=== PATIENT | male | born 1955 | race Caucasian/White ===

== ENCOUNTER 2017-02-12 16:37 | Emergency (ER) | payer OTHER ==
[~2017-02-12] VITALS: Ht 172.7 cm; Wt 122.5 kg
[~2017-02-12 16:37] MED LIST: AMITRIPTYLINE H25 MG PO; CIPRO500 MG PO; DISALCID500 MG PO; FLOMAX0.4 MG PO; FLONASE ALLERG9.9 ML NS; LACTULOSE10 GM/15 M PO; LACTULOSE20 GM/30 M PO; LANTUS100 UNITS/ SUB-Q; LASIX40 MG PO; MELATONIN3 MG PO; MELOXICAM15 MG PO; NADOLOL20 MG PO; NEXIUM20 MG PO; OMEPRAZOLE20 MG PO; SPIRONOLACTONE100 MG NG; SPIRONOLACTONE50 MG PO; TRIAMCINOLONE A15 G1 TOP; ZOFRAN4 MG PO
[2017-02-12] MEDS ORDERED: ULTRAM50 MG PO (18:37)
== END 2017-02-12 19:20 | disposition home or self-care (01) ==
LOC: ED 16:37
DX: S80.02XA Contusion of left knee, initial encounter (principal); D64.9 Anemia, unspecified; D69.6 Thrombocytopenia, unspecified; E11.9 Type 2 diabetes mellitus without complications; Z87.891 Personal history of nicotine dependence; Z87.442 Personal history of urinary calculi; Z79.4 Long term (current) use of insulin; Z79.899 Other long term (current) drug therapy; Z90.49 Acquired absence of other specified parts of digestive tract; W21.07XA Struck by softball, initial encounter
CPT/HCPCS: 73560; 80053; 85025; 99283

== ENCOUNTER 2017-05-29 18:59 | Emergency (ER) | payer OTHER ==
[~2017-05-29] VITALS: Ht 172.7 cm; Wt 96.6 kg
[~2017-05-29 18:59] MED LIST changes: +ULTRAM50 MG PO
[2017-05-29] MEDS ORDERED: HUMALOG100 UNITS/ IV (20:29)
[2017-05-29] MEDS ORDERED: LANTUS100 UNITS/ SUB-Q (20:30)
[2017-05-29] MEDS ORDERED: CLOBETASOL EMOL15 GM TOP (20:31)
[2017-05-29] MEDS ORDERED: MELATIN3 MG PO (20:35)
[2017-05-29] MEDS ORDERED: LACTULOSE10 GM/152 PO (20:35)
[2017-05-29] MEDS ORDERED: NADOLOL40 MG PO (20:36)
[2017-05-29] MEDS ORDERED: TRIAMCINOLONE A15 G1 TOP (20:38)
[2017-05-29] MEDS ORDERED: FLOMAX0.4 MG PO (20:38)
[2017-05-29] MEDS ORDERED: LASIX20 MG PO (20:40)
== END 2017-05-30 00:55 | disposition home or self-care (01) ==
LOC: ED 18:59
PROC: 0HQ0XZZ Repair Scalp Skin, External Approach (ICD-10-PCS; principal; 2017-05-29)
DX: J01.90 Acute sinusitis, unspecified (principal); S01.01XA Laceration without foreign body of scalp, initial encounter; D69.6 Thrombocytopenia, unspecified; E11.9 Type 2 diabetes mellitus without complications; Z86.19 Personal history of other infectious and parasitic diseases; Z87.442 Personal history of urinary calculi; Z87.891 Personal history of nicotine dependence; Z87.820 Personal history of traumatic brain injury; Z90.49 Acquired absence of other specified parts of digestive tract; Z79.4 Long term (current) use of insulin; Z79.899 Other long term (current) drug therapy; W06.XXXA Fall from bed, initial encounter
CPT/HCPCS: 12002; 70450; 80053; 85025; 90471; 90715; 99284

== ENCOUNTER 2017-05-30 10:41 | Emergency (ER) | payer OTHER ==
[~2017-05-30] VITALS: Ht 172.7 cm; Wt 96.6 kg
[~2017-05-30 10:41] MED LIST changes: +CLOBETASOL EMOL15 GM TOP; +HUMALOG100 UNITS/ IV; +LACTULOSE10 GM/152 PO; +LASIX20 MG PO; +MELATIN3 MG PO; +NADOLOL40 MG PO
== END 2017-05-30 12:25 | disposition home or self-care (01) ==
LOC: ED 10:41
PROC: 0HQ0XZZ Repair Scalp Skin, External Approach (ICD-10-PCS; principal; 2017-05-30)
DX: S01.01XA Laceration without foreign body of scalp, initial encounter (principal); E11.9 Type 2 diabetes mellitus without complications; Z87.442 Personal history of urinary calculi; Z90.49 Acquired absence of other specified parts of digestive tract; Z98.890 Other specified postprocedural states; Z79.4 Long term (current) use of insulin; Z79.899 Other long term (current) drug therapy; W06.XXXA Fall from bed, initial encounter
CPT/HCPCS: 12002; 99282

== ENCOUNTER 2018-03-26 20:30 | Inpatient (IN) | payer MEDICAID, OTHER ==
[~2018-03-26] VITALS: Ht 172.7 cm; Wt 81.6 kg
--- OUTSIDE RECORDS SUMMARY | ~2018-03-26 | XMS | Clinical Summary ---
Demographics + + + | Address | [place] [facility] | | | [address] | | | [place] [address] | + + + | Home Phone | | + + + | Preferred Language | Unknown | + + + | Marital Status | Unknown | + + + | Anglican Affiliation | Unknown | + + + | Race | Unknown | + + + | Ethnic Group | Unknown | + + + Author + + + | Author | [facility] | | | and [place] | + + + | Organization | [facility] | | | and [place] | + + + | Address | Unknown | + + + | Phone | Unavailable | + + + Support + + + + + | Name | Relationship | Address | Phone | + + + + + | [place] | E[place] | [address] | | [address] | | [place], | | | | | [place] [address] | | + + + + + Care Team Providers + +------+ + | Care Tool Crib Supervisor Name | Role | Phone | + +------+ + | No, Physician | PP | Unavailable | + +------+ + Allergies No Known Allergies Current Medications + + +-------+---------+------+------+-------+ | Prescription | Sig. | Disp. | Refills | Star | End | Statu | | | | | | t | Date | s | | | | | | Date | | | + + +-------+---------+------+------+-------+ | furosemide (LASIX) | Take 20 mg by mouth. | | | | | Activ | | 20 mg tablet | 2 tablets in the | | | | | e | | | am, 1 tablets at | | | | | | | | noon prn swelling | | | | | | + + +-------+---------+------+------+-------+ | lactulose 10 g/15 | Take 20 g by mouth. | | | | | Activ | | mL solution | | | | | | e | + + +-------+---------+------+------+-------+ | insulin glargine | Inject 20 Units | | | | | Activ | | (LANTUS) 100 | under the skin. | | | | | e | | units/mL injection | | | | | | | | (vial) | | | | | | | + + +-------+---------+------+------+-------+ | melatonin 3 mg | Take 3 mg by mouth | | | | | Activ | | TABS | nightly. | | | | | e | + + +-------+---------+------+------+-------+ | nadolol (CORGARD) | Take 40 mg by mouth | | | | | Activ | | 40 mg tablet | Daily. | | | | | e | + + +-------+---------+------+------+-------+ | omeprazole | Take 20 mg by mouth | | | | | Activ | | (PRILOSEC) 20 mg | every morning | | | | | e | | capsule | (before breakfast). | | | | | | + + +-------+---------+------+------+-------+ | spironolactone | Take 150 mg by mouth | | | | | Activ | | (ALDACTONE) 50 mg | Daily. | | | | | e | | tablet | | | | | | | + + +-------+---------+------+------+-------+ | tamsulosin | Take 0.4 mg by mouth | | | | | Activ | | (FLOMAX) 0.4 mg CAPS | daily (after | | | | | e | | | breakfast). | | | | | | + + +-------+---------+------+------+-------+ Active Problems No known active problems Social History + + + +--------+ + | Tobacco Use | Types | Packs/Day | Years | Date | | | | | Used | | + + + +--------+ + | Former Smoker | Cigarettes | 0.3 | | Quit: 07/12/2010 | + + + +--------+ + + + + | Sex Assigned at | Date Recorded | | | | + + + | Not on file | | + + + Last Filed Vital Signs + + + + | Vital Sign | Reading | Time Taken | + + + + | Blood Pressure | 115/84 | 10/02/20161529 PDT | + + + + | Pulse | 58 | 10/02/20161529 PDT | + + + + | Temperature | 37.2 C (99 F) | 10/02/20169 PDT | + + + + | Respiratory Rate | 18 | 10/02/20161529 PDT | + + + + | Oxygen Saturation | 98% | 10/02/20161529 PDT | + + + + | Inhaled Oxygen | - | - | | Concentration | | | + + + + | Weight | 97.5 kg (215 lb) | 10/02/2016855 PDT | + + + + | Height | 170.2 cm (5' 7") | 10/02/2016855 PDT | + + + + | Body Mass Index | 33.67 | 10/02/2016855 PDT | + + + + Plan of [...] | | + + + + + Implants + +-------+--------+ +--------+--------+--------+ | Implanted | Type | Area | Manufacture | Device | Expira | Model | | | | | r | | tion | / | | | | | | Identi | Date | Serial | | | | | | fier | | / Lot | + +-------+--------+ +--------+--------+--------+ | Stent Uro Unvrs Sft 6fr 28cm | Stent | Left: | COOK | | 03/20/ | [id number] | | - [id number]: Qty: 1 | | Ureter | [employer] | | 2019 | / | | on 10/02/2016 by Baltazar Riggins | | | - MIK | | | /[id number] | | MD Reza | | | | | | 51 | + +-------+--------+ +--------+--------+--------+ Results Not on filefrom Last 3 Months Insurance + +--------+ +--------+-------+---------+ | Payer | Benefi | Subscriber | Type | Phone | Address | | | t Plan | ID | | | | | | / | | | | | | | Group | | | | | + +--------+ +--------+-------+---------+ | DEPARTMENT OF | DEPART | [id number] | Indemn | | | | CORRECTIONS | MENT | | ity | | | | | OF | | | | | | | CORREC | | | | | | | TIONS | | | | | | | OTHER | | | | | + +--------+ +--------+-------+---------+ + +--------+ +--------+ + + | Guarantor Name | Accoun | Relation to | Date | Phone | Billing Address | | | t Type | Patient | of | | | | | | | | | | + +--------+ +--------+ + + | ABBIE RAMIRES [place] | Corpor | Other | [birth year] | Work: | [address] | | [facility] | ate | | 1899 | [phone] | [place] [address] | | | | | | [phone] Home: | | | | | | | | | | | | | | [phone] | | | | | | | [phone] | | + +--------+ +--------+ + + | ESTEVAN BURGER | Person | Self | [birth year] | Home: | [place] | | | al/Fam | | 1956 | [phone] | [address] | | | [address] | | | [phone] | [place] | | | | | | | [place] [address] | + +--------+ +--------+ + +
--- OUTSIDE RECORDS SUMMARY | ~2018-03-26 | XMS | Clinical Summary ---
Demographics + + + | Address | [address] | | | [place] [address] | + + + | Home Phone | | + + + | Preferred Language | Unknown | + + + | Marital Status | | + + + | Orthodoxy Affiliation | 1041 | + + + | Race | Unknown | + + + | Ethnic Group | Unknown | + + + Author + + + | Author | [facility] | + + + | Organization | [facility] | + + + | Address | Unknown | + + + | Phone | Unavailable | + + + Support + + +---------+ + | Name | Relationship | Address | Phone | + + +---------+ + | Jovana Mancia | ECON | Unknown | | | n [place] | | | | + + +---------+ + Care Team Providers + +------+ + | Care Nailer Operator Name | Role | Phone | + [...] | 17 | | | | | [id number] | | | | | | | [...] +------+-------+---------+ | [facility] | FC-COR | [id number] | | | | | | RECTIO [...] | 1956 | +- | [place] [address] | | | [address]ela | | | [address] | | + +--------+ +--------+ + + | LUCIANA,ABBIE | Correc | Other | [birth year] | Home: | [address] | | [place] | tional | | 1898 | +- | [place] | | | | | | [address] | [phone] | | | Facili | | | | | | | ty | | | | | + +--------+ +--------+ + +
--- OUTSIDE RECORDS SUMMARY | ~2018-03-26 | XMS | Clinical Summary ---
Demographics + + + | Address | [address] | | | [place] [address] | + + + | Home Phone | | + + + | Preferred Language | Unknown | + + + | Marital Status | | + + + | Protestant Affiliation | 1041 | + + + | Race | Unknown | + + + | Ethnic Group | Unknown | + + + Author + + + | Author | [facility] | + + + | Organization | [facility] | + + + | Address | Unknown | + + + | Phone | Unavailable | + + + Support + + +---------+ + | Name | Relationship | Address | Phone | + + +---------+ + | Jovana Mancia | ECON | Unknown | | | n [place] | | | | + + +---------+ + Care Team Providers + +------+ + | Care Family Court Counsellor Name | Role | Phone | + [...] | 17 | | | | | [id number] | | | | | | | [...] +------+-------+---------+ | [employer] [facility] | FC-COR | [id number] | | | | | | RECTIO [...] | 1956 | +- | [place] [address] | | | [address]ela | | | [address] | | + +--------+ +--------+ + + | LUCIANA,ABBIE | Correc | Other | [birth year] | Home: | [address] | | [place] | tional | | 1898 | +- | [place] | | | | | | [address] | [phone] | | | Facili | | | | | | | ty | | | | | + +--------+ +--------+ + +
--- OUTSIDE RECORDS SUMMARY | ~2018-03-26 | XMS | Clinical Summary ---
Demographics + + + | Address | [place] [facility] | | | [address] | | | [place] [address] | + + + | Home Phone | | + + + | Preferred Language | Unknown | + + + | Marital Status | Unknown | + + + | Rastafarian Affiliation | Unknown | + + + | Race | Unknown | + + + | Ethnic Group | Unknown | + + + Author + + + | Author | [facility] | | | and [place] | + + + | Organization | [facility] | | | and [...] [place], | | | | | [place] [address] | | + + + + + Care Team Providers + +------+ + | Care Outside Repairer Special Name | Role | Phone | + [...] | MIK HOUSER | | 03/20/ | [id number] | | - [id number]: Qty: 1 | | Ureter | INCORPORATE | | 2019 | / | | on 10/02/2016 by Baltazar Riggins | | | D | | | /[id number] | | MD Reza | | | [...] +--------+-------+---------+ | DEPARTMENT OF | DEPART | [id number] | Indemn | | | | CORRECTIONS [...] +--------+ +--------+ + + | ABBIE RAMIRES [place] | Corpor | Other | [birth year] | Work: | [address] | | [facility] | ate | | 1899 | [phone] | [place] [address] | | | | | | [address] Home: | | | | | | | | | | | | | | [phone] | | | | | | | [address] | | + +--------+ +--------+ + + | ESTEVAN BURGER | Person | Self | [birth year] | Home: | [place] | | | al/Fam | | 1956 | [phone] | [address] | | | [address] | | | [phone] | [place] | | | | | | | [place] [address] | + +--------+ +--------+ + +
--- OUTSIDE RECORDS SUMMARY | ~2018-03-26 | XMS | Clinical Summary ---
Demographics + + + | Address | [address] | | | [place] [address] | + + + | Home Phone | | + + + | Preferred Language | Unknown | + + + | Marital Status | | + + + | Anglican Affiliation | 1041 | + + + | Race | Unknown | + + + | Ethnic Group | Unknown | + + + Author + + + | Author | [facility] | + + + | Organization | [facility] | + + + | Address | Unknown | + + + | Phone | Unavailable | + + + Support + + +---------+ + | Name | Relationship | Address | Phone | + + +---------+ + | Jovana Mancia | ECON | Unknown | | | n [place] | | | | + + +---------+ + Care Team Providers + +------+ + | Care Vacuum Technician Name | Role | Phone | + [...] | 17 | | | | | [id number] | | | | | | | [...] +------+-------+---------+ | [facility] | FC-COR | [id number] | | | | | | RECTIO [...] | 1956 | +- | [place] [address] | | | [address]ela | | | [address] | | + +--------+ +--------+ + + | LUCIANA,ABBIE | Correc | Other | [birth year] | Home: | [address] | | [place] | tional | | 1898 | +- | [place] | | | | | | [address] | [phone] | | | Facili | | | | | | | ty | | | | | + +--------+ +--------+ + +
--- OUTSIDE RECORDS SUMMARY | ~2018-03-26 | XMS | Clinical Summary ---
Demographics + + + | Address | [place] [facility] | | | [address] | | | [place] [address] | + + + | Home Phone | | + + + | Preferred Language | Unknown | + + + | Marital Status | Unknown | + + + | Amish Affiliation | Unknown | + + + | Race | Unknown | + + + | Ethnic Group | Unknown | + + + Author + + + | Author | [facility] | | | and [place] | + + + | Organization | [facility] | | | and [...] [place], | | | | | [place] [address] | | + + + + + Care Team Providers + +------+ + | Care Vp Medical Name | Role | Phone | + [...] Left: | COOK | | 03/20/ | [id number] | | - [id number]: Qty: 1 | | Ureter | [employer] | | 2019 | / | | on 10/02/2016 by Baltazar Riggins | | | - MIK | | | /[id number] | | MD Reza | | | [...] +--------+-------+---------+ | DEPARTMENT OF | DEPART | [id number] | Indemn | | | | CORRECTIONS [...] +--------+ +--------+ + + | ABBIE RAMIRES [place] | Corpor | Other | [birth year]/ | Work: | [address] | | [facility]AL | ate | | 1899 | [phone] | [place] [address] | | | | | | [address] Home: | | | | | | | | | | | | | | [phone] | | | | | | | [address] | | + +--------+ +--------+ + + | ESTEVAN BURGER | Person | Self | [birth year] | Home: | [place] | | | al/Fam | | 1956 | [phone] | [address] | | | [address] | | | [phone] | [place] | | | | | | | [place] [address] | + +--------+ +--------+ + +
[~2018-03-26 20:30] MED LIST changes: -HUMALOG100 UNITS/ IV; +HUMALOG100 UNITS/ SUB-Q
[2018-03-26] MEDS ORDERED: NORVASC2.5 MG PO (20:50)
[2018-03-26] MEDS ORDERED: FLUTICASONE PRO16 GM NAS (20:51)
[2018-03-26] MEDS ORDERED: XIFAXAN550 MG PO (20:51)
[2018-03-26] MEDS ORDERED: NEXAVAR200 MG PO (20:52)
[2018-03-26] MEDS ORDERED: [UNRECOGNIZED DRUG - OTHER] PO (20:53)
[2018-03-26] MEDS ORDERED: ASMANEX220 MC1 INH (20:54)
[2018-03-26] MEDS ORDERED: CIPRO500 MG PO (20:56)
--- NOTE | 2018-03-27 03:17 | NUR ---
PT ARRIVED TO ROOM 127 AT 0120. MOVED PT TO BED WITH SLIDER SHEET. PT ANSWERS YES OR NO QUESTIONS BUT KEEPS EYES CLOSED. REPORTS FEELING COLD, HOWEVER. IRRITABLE WITH CARES. DENIES KNOWING LAST BM. PT GIVEN CIPRO IV AND NS STARTED AT 125ML/HR. INTO R GUARDADO IV. FLUSHES WELL. WRAPPED WITH GAUZE. TO PROTECT. PROVIDED WARM BLANKET AND EXPLAINED PLAN OF CARE TO CORRECTIONAL OFFICERS AT BEDSIDE (2). PT IN SHACKLES ON LEGS AND ARMS, WITH BELLY CHAIN WELL.
--- NOTE | 2018-03-27 05:34 | NUR ---
PT HAD LARGE INC YELLOW/BROWN LIQUID STOOL. NO FORM, WATERY. CUT OFF PANTS AND PROVIDED PERICARE. PLACED ON BEDPAN. HAD VERY LARGE LIQUID STOOL. APPROXIMATELY 500ML. PERICARE DONE. ATTENDS ON. BLOOD DRAWN FOR AM LABS FROM IV IN Pia GUARDADO. IV DRAWS BLOOD AND FLUSHES WELL, 3ML WASTED FOR DRAW. PT VERY BELLIGERANT DURING CHANGING. CUSSING AND FRUSTRATED. ASKED IF HE WAS GOING TO BE ABLE TO TO GO HOME TODAY, EXPLAINED THAT I DID NOT KNOW. STATED "I WANT TO GO HOME TODAY BECAUSE MY IS EXPECTING". OFFERED SIPS WATER. 2 OFFICERS IN ROOM. REMAINS IN SHALES.
--- NOTE | 2018-03-27 06:47 | NUR ---
PT TO BEDPAN TO HAVE YELLOW LIQUID STOOL 200ML. PERICARE PROVIDED. ATTENDS ON. PT FORGETFUL, BUT MORE ALERT.
[2018-03-27] MEDS ORDERED: NOVOLIN R100 UNIT/1 SUB-Q (07:23)
[2018-03-27] MEDS ORDERED: OXYCODONE HCL5 MG PO (07:27)
[2018-03-27] MEDS ORDERED: LASIX40 MG PO (07:30)
--- NOTE | 2018-03-27 07:30 | NUR ---
REPORT RECIEVED. PATIENT IS IN BED RESTFUL. OFFICERS IN ROOM X 2.
[2018-03-27] MEDS ORDERED: IMODIUM A-D2 M2 PO (07:33)
[2018-03-27] MEDS ORDERED: SALINE NASAL SP30 ML NAS (07:38)
[2018-03-27] MEDS ORDERED: OMEPRAZOLE20 MG PO (07:39)
[2018-03-27] MEDS ORDERED: ALDACTONE100 MG PO (07:40)
[2018-03-27] MEDS ORDERED: ZOFRAN4 MG PO (07:41)
[2018-03-27] MEDS ORDERED: VENTOLIN HFA18 GM INH (07:44)
[2018-03-27] MEDS ORDERED: CORGARD80 MG PO (07:48)
--- NOTE | 2018-03-27 07:49 | NUR ---
MED REC COMPLETE WITH [facility]
--- NOTE | 2018-03-27 08:00 | NUR ---
ASSESSMENT DONE. DENIES PAIN, OR NAUSEA. IS HAVING SOME STUTTERING. PATIENT STATES THIS IS NOT NORMAL FOR HIM. FORGETFUL AT THIS TIME, HAVING DIFFICULTY WITH THOUGHT PROCESS. IS COOPERATIVE AND FOLLOWING COMMANDS. PATIENT STATES HE HAS BEEN TAKING THE LACTOLOSE AT HOME. IV PATENT.
--- NOTE | 2018-03-27 08:30 | NUR ---
SITTING UP IN BED TO EAT BREAKFAST. TALKING ABOUT GOING HOME.
--- NOTE | 2018-03-27 09:09 | NUR ---
PT DID WELL WITH AMBULATION FROM BED TO BS COMMODE, ONE PERSON ASSISTANCE NEEDED. WARM BLANKETS GIVEN AND BACK TO BED.
--- NOTE | 2018-03-27 09:10 | NUR ---
UP TO COMMODE WITH ASSIST TO EXPELL LOOSE STOOL. DENEIS DIZZINESS WITH MOVEMENT.
--- NOTE | 2018-03-27 09:15 | NUR ---
DR. YBARRA HERE TO SEE PATIENT. ORDERS RECIEVED.
--- NOTE | 2018-03-27 09:35 | NUR ---
LABS DRAWN VIA IV SITE.
--- NOTE | 2018-03-27 10:00 | NUR ---
KHADRA BLOOD FROM IV SITE ON RIGHT LEG, TURNED IV FLUIDS OFF AND WASTED 10 MLS OF BLOOD. BLOOD PULLED BACK WELL, SENT GREEN TOP ON ICE TO LAB. FLUSHED LINE AND RESTARTED IV FLUIDS. PATIENT TOLERATED WELL. PROVIDED PATIENT WITH ICE WATER AND REPORTED CONCERNS WITH IV FLUIDS AND MEDICATION TO PRIMARY NURSE RONNY IN REGARDS TO POC. 2 GAURDS IN ROOM FROM [facility], NO OTHER NEEDS AT THIS TIME.
--- NOTE | 2018-03-27 11:15 | NUR ---
k+ 5.8 kayexlate GIVEN WELL OTHER PO MEDICATIONS. IS AWARE HE WILL NOT BE DISCHARGED TODAY. IVF TO 250 ML/HR.
--- NOTE | 2018-03-27 11:48 | NUR ---
SITTING UP AT BEDSIDE TO EAT LUNCH. ASSESSMENT DONE.
--- NOTE | 2018-03-27 12:34 | NUR ---
UP TO BR SEVERAL TIMES TO EXPELL LIQ STOOL. VERY DIFFICULT TO MEASURE. TOOK LUNCH WELL, TAKING PO FLUIDS. DENIES NEAUSE. RATES OVERALL PAIN 8/10. OXYCODONE 10 MG PO GIVEN.
--- NOTE | 2018-03-27 14:05 | NUR ---
PT AMBULATED TO BATHROOM, HAD LOOSE BM AND VOIDED SOME IN URINAL, BACK TO BED WITH TWO WARM BLANKETS. TWO [facility] OFFICERS AT THE BEDSIDE.
--- NOTE | 2018-03-27 15:00 | NUR ---
LABS DRAWN VIA IV SITE.
--- NOTE | 2018-03-27 15:30 | NUR ---
K+ LEVEL 4.5. PATIENT STATES HE FEELS BETTER THIS AFTERNOON.
--- NOTE | 2018-03-27 16:40 | NUR ---
DENIES NEED FOR PAIN MEDICATION. HAS GENERALIZED PAIN 09/18. OXYCODONE HELD.
--- NOTE | 2018-03-27 18:02 | NUR ---
LASIX 20 MG IV GIVEN PER ORDERS. DR. YBARRA IS AWARE OF ABD DISTENTION.
--- NOTE | 2018-03-27 20:27 | NUR ---
PT GIVEN HS MEDS. DENIES PAIN/NEEDS. PT UP TO BR TO HAVE LIQUID STOOL 250ML AND VOIDED 400ML URINE. WRIST/FEET SHACKLES ON AND CHAIN AROUND WAIST. 2 OFFICERS IN ROOM.
--- NOTE | 2018-03-28 00:19 | NUR ---
IN TO ASSESS PT. ASKED IF HAVING ANY PAIN. STATED 'JUST MY BELLY, BUT NO MORE THAN USUAL'. CHATTING WITH OFFICERS IN ROOM. DENIES NEED TO USE BR. IV PATENT. PT REQUESTED HS SNACK. OFFERED JELLO, PUDDING, ALEXI CRACKER AND TEA.
--- NOTE | 2018-03-28 02:15 | NUR ---
PT UP TO BR TO VOID TO URINAL AND HAVE LIQUID STOOL. 2 OFFICERS AT BEDSIDE. OFFERED MORE TEA AND WATER.
--- NOTE | 2018-03-28 04:24 | NUR ---
PT UP TO BR TO VOID TO URINAL AND HAVE LIQUID BM. SHACKLES IN PLACE X4 EXTREMITIES. NO OTHER NEEDS.
--- NOTE | 2018-03-28 05:45 | NUR ---
LAB IN TO DRAW PT BLOOD.
--- NOTE | 2018-03-28 07:40 | NUR ---
UP TO BR TO VOID AND EXPELL LIQUID BROWN STOOL. IS STABLE ON FEET. UPON RETURN TO BED, ASSESSMENT DONE.
--- NOTE | 2018-03-28 08:00 | NUR ---
ROUTINE MEDS GIVEN. IS COOPERATIVE. CORECTIONAL OFFICERS x 2 IN ROOM.
--- NOTE | 2018-03-28 08:40 | NUR ---
SITTING AT BEDSIDE TO EAT BEAKFAST.
[2018-03-28] MEDS ORDERED: MAG-OXIDE400 MG PO (10:00)
--- NOTE | 2018-03-28 10:00 | NUR ---
DR. YBARRA HERE TO SEE PATIENT, DISCHARGE ORDERS RECIEVED.
--- NOTE | 2018-03-28 11:10 | NUR ---
MONITOR DC'D, UP TO BR TO HAVE LIQUID STOOL. REMAINS STABLE ON FEET. HAS BEEN COOPERTIVE.
--- NOTE | 2018-03-28 11:45 | NUR ---
DISCHARGE INSTRUCTIONS GIVEN WITH PATIENT UNDERSTANDING. PATIENT TOOK DIET WELL. SL DC'D WITH CATH INTACT.
--- NOTE | 2018-03-28 11:50 | NUR ---
REPORT CALLED TO TERRIE.
--- NOTE | 2018-03-28 12:00 | NUR ---
DISCHARGED VIA W/C ACCOMP BY [facility] STAFF AND RN.
--- NOTE | 2018-03-28 14:25 | NUR ---
PT WAS BEING PREPPED FOR DC TO [facility]. RN SUGGESTED THE THIS IS NOT THE BEST TIME TO VISIT WITH THE ACTIVITY. WILL FOLLOW NEEDED
== END 2018-03-28 12:00 | disposition home or self-care (01) | DRG 442 ==
LOC: ED 20:30 → CCU 03-27 01:03
PROVIDERS: ADMIT Internal Medicine
DX: K72.90 Hepatic failure, unspecified without coma (principal); C22.0 Liver cell carcinoma; N17.9 Acute kidney failure, unspecified; B19.20 Unspecified viral hepatitis C without hepatic coma; E11.9 Type 2 diabetes mellitus without complications; D69.49 Other primary thrombocytopenia; E83.42 Hypomagnesemia; E87.5 Hyperkalemia; Z79.4 Long term (current) use of insulin; Z87.820 Personal history of traumatic brain injury
CPT/HCPCS: 71045; 80048; 80053; 81001; 82140; 83605; 83735; 85025; 85610; 87088; 99285; J0744; J3475; J7030

== ENCOUNTER 2018-04-07 14:46 | Emergency (ER) | payer OTHER ==
[~2018-04-07] VITALS: Ht 172.7 cm; Wt 81.6 kg
--- OUTSIDE RECORDS SUMMARY | ~2018-04-07 | XMS | Clinical Summary ---
Demographics + + + | Address | [address] | | | [place] [address] | + + + | Home Phone | | + + + | Preferred Language | Unknown | + + + | Marital Status | | + + + | Yazidism Affiliation | 1041 | + + + | Race | Unknown | + + + | Ethnic Group | Unknown | + + + Author + + + | Author | [facility] | + + + | Organization | [facility] | + + + | Address | Unknown | + + + | Phone | Unavailable | + + + Support + + +---------+ + | Name | Relationship | Address | Phone | + + +---------+ + | Jovana Mancia | ECON | Unknown | | | [place] | | | | + + +---------+ + Care Team Providers + +------+ + | Care Certified Medical Aide Name | Role | Phone | + +------+ + | Best George MD | PP | | + +------+ + Allergies No Known Allergies Current Medications + + + +---------+------+------+-------+ | Prescription | Sig. | Disp. | Refills | Star | End | Statu | | | | | | t | Date | s | | | | | | Date | | | + + + +---------+------+------+-------+ | melatonin 3 MG | Take 3 mg by mouth | | | | | Activ | | TABS | nightly. | | | | | e | + + + +---------+------+------+-------+ | nadolol (CORGARD) | Take 40 mg by mouth | | | | | Activ | | 40 MG tablet | daily. | | | | | e | + + + +---------+------+------+-------+ | omeprazole | Take 20 mg by mouth | | | | | Activ | | (PRILOSEC) 20 MG | 2 (two) times daily. | | | | | e | | capsule | | | | | | | + + + +---------+------+------+-------+ | tamsulosin | Take 0.4 mg by mouth | | | | | Activ | | (FLOMAX) 0.4 MG | After dinner. | | | | | e | | capsule | | | | | | | + + + +---------+------+------+-------+ | lactulose | Take 45 mLs by mouth | 240 mL | 0 | 04/0 | | Activ | | (CHRONULAC) 10 | 4 (four) times | | | 9/20 | | e | | GM/15ML | daily. Titrate to | | | 17 | | | | solutionIndications: | have 3-4 bowel | | | | | | | Hepatic | movements per day | | | | | | | Encephalopathy | Indications: | | | | | | | | Impaired Brain | | | | | | | | Function due to | | | | | | | | Liver Disease | | | | | | + + + +---------+------+------+-------+ | rifaximin | Take 1 tablet by | 60 | 0 | 04/0 | | Activ | | (XIFAXAN) 550 MG | mouth 2 (two) times | tablet | | 03/31 | | e | | TABSIndications: | daily. Indications: | | | 17 | | | | Hepatic | Impaired Brain | | | | | | | Encephalopathy | Function due to | | | | | | | | Liver Disease | | | | | | + + + +---------+------+------+-------+ | insulin lispro, | Blood GlucoseMedium | 10 mL | 0 | 04/0 | | Activ | | human, (HUMALOG) 100 | Dose <70 Initiate | | | 03/31 | | e | | UNIT/ML injection | HYPOGLYCEMIA | | | 17 | | | | | [id number] | | | | | | | | units 120-1491 units | | | | | | | | 150-199 2 units | | | | | | | | 200-249 3 units | | | | | | | | 250-299 5 units | | | | | | | | 300-3497 units | | | | | | | | 350-3998 units | | | | | | | | >400 10 | | | | | | | | units Call MD | | | | | | + + + +---------+------+------+-------+ | furosemide (LASIX) | Take 20 mg by mouth | | | | | Activ | | 20 MG tablet | daily. | | | | | e | + + + +---------+------+------+-------+ | oxyCODONE | Take 5 mg by mouth 4 | | | | | Activ | | (ROXICODONE) 5 MG | (four) times daily. | | | | | e | | immediate release | | | | | | | | tablet | | | | | | | + + + +---------+------+------+-------+ Active Problems + + + | Problem | Noted Date | + + + | Oral bleeding | 08/28/2017 | + + + | Essential hypertension | 10/12/2016 | + + + | Hepatic encephalopathy (HCC) | 10/12/2016 | + + + | Hematuria, gross | 10/12/2016 | + + + | DM II (diabetes mellitus, type II), controlled | 10/12/2016 | + + + | Thrombocytopenia, unspecified | 10/12/2016 | + + + | Anemia | 10/12/2016 | + + + | Cirrhosis | | + + + Resolved Problems + + + + | Problem | Noted | Resolved | | | Date | Date | + + + + | Hyperkalemia | 10/13/19 | | | | 17 | 7 | + + + + Immunizations + + + + | Name | Dates Previously Given | Next Due | + + + + | Pneumococcal | 10/13/2016 | | | Polysaccharide | | | | 23-valent | | | + + + + Family History + +------+--------+ + | Relation | Name | Status | Comments | + +------+--------+ + Social History + +-------+ +--------+------+ | Tobacco Use | Types | Packs/Day | Years | Date | | | | | Used | | + +-------+ +--------+------+ | Former Smoker | | | | | + +-------+ +--------+------+ + +---+---+---+ | Smokeless Tobacco: | | | | | Never Used | | | | + +---+---+---+ + + +---------+ + | Alcohol Use | Drinks/We | oz/Week | Comments | | | ek | | | + + +---------+ + | Yes | 0 | 0.0 | quit years ago | | | Standard | | | | | drinks or | | | | | | | | | | equivalen | | | | | t | | | + + +---------+ + + + + | Sex Assigned at | Date Recorded | | | | + + + | Not on file | | + + + Last Filed Vital Signs + + + + | Vital Sign | Reading | Time Taken | + + + + | Blood Pressure | 139/63 | 08/31/2017 11:13 AM PST | + + + + | Pulse | 76 | 08/31/2017 11:13 AM PST | + + + + | Temperature | 36.8 C (98.2 F) | 08/31/2017 11:13 AM PST | + + + + | Respiratory Rate | 18 | 08/31/2017 11:13 AM PST | + + + + | Oxygen Saturation | 95% | 08/31/2017 11:13 AM PST | + + + + | Inhaled Oxygen | - | - | | Concentration | | | + + + + | Weight | 91.6 kg (202 lb) | 08/29/2017 12:47 AM PST | + + + + | Height | 167.6 cm (5' 5.98") | 08/29/2017 12:47 AM PST | + + + + | Body Mass Index | 32.62 | 08/29/2017 12:47 AM PST | + + + + Plan of Treatment + + + + + | Health Maintenance | Due Date | Last Done | Comments | + + + + + | Diabetic Eye Exam | | | | | | 8 | | | + + + + + | Diabetic Foot Exam | | | | | | 8 | | | + + + + + | Vaccine: | | | | | Dtap/Tdap/Td (1 - | 7 | | | | Tdap) | | | | + + + + + | Vaccine: Zoster (1 | | | | | of 2) | 8 | | | + + + + + | Hemoglobin A1c | | 10/15/2016, 10/13/2016 | | | | 7 | | | + + + + + | Microalbumin | | 10/16/2016 | | | Screening | 8 | | | + + + + + | Vaccine: Influenza | | | | | (#1) | 8 | | | + + + + + | Colon Cancer | | 10/18/2016 | | | Screening | 7 | | | | (Colonoscopy) | | | | + + + + + | Vaccine: | Completed | 10/13/2016 | | | Pneumococcal 19-64 | | | | | (PPSV23 only) Medium | | | | | Risk | | | | + + + + + Results Not on filefrom Last 3 Months Insurance + +--------+ +------+-------+---------+ | Payer | Benefi | Subscriber | Type | Phone | Address | | | t Plan | ID | | | | | | / | | | | | | | Group | | | | | + +--------+ +------+-------+---------+ | [employer] | [employer] | [id number] | | | | | | RECTIO | | | | | | | NAL | | | | | | | HEALTH | | | | | | | | | | | | | | PARTNE | | | | | | | RS | | | | | + +--------+ +------+-------+---------+ + +--------+ +--------+ + + | Guarantor Name | Accoun | Relation to | Date | Phone | Billing Address | | | t Type | Patient | of | | | | | | | | | | + +--------+ +--------+ + + | ESTEVAN BURGER | Person | Self [birth year] | Home: | [address] | | | al/Fam | | 1956 | +- | [place] [address] | | | estela | | | [address] | | + +--------+ +--------+ + + | LUCIANA,ABBIE | Correc | Other | [birth year] | Home: | [address] | | [place] | tional | | 1898 | +- | [place] | | | | | | [address] | [address] | | | Facili | | | | | | | ty | | | | | + +--------+ +--------+ + +
--- OUTSIDE RECORDS SUMMARY | ~2018-04-07 | XMS | Clinical Summary ---
Demographics + + + | Address | [place] [facility] | | | [address] | | | [place] [address] | + + + | Home Phone | | + + + | Preferred Language | Unknown | + + + | Marital Status | Unknown | + + + | Alevism Affiliation | Unknown | + + + | Race | Unknown | + + + | Ethnic Group | Unknown | + + + Author + + + | Author | [facility] | | | and [place] | + + + | Organization | [facility] | | | [...] [place], | | | | | [place] [address] | | + + + + + Care Team Providers + +------+ + | Care Waterworks Chief Engineer Name | Role | Phone | + [...] 6fr 28cm | Stent | Left: | MIK HOUSER | | 03/20/ | [id number] | | - [id number]: Qty: 1 | | Ureter | INCORPORATE | | 2019 | / | | on 10/02/2016 by Baltazar Riggins | | | D | | | /[id number] | | MD Reza | | | [...] +--------+-------+---------+ | DEPARTMENT OF | DEPART | [id number] | Indemn | | | | CORRECTIONS [...] +--------+ +--------+ + + | ABBIE RAMIRES [place] | Corpor | 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
--- OUTSIDE RECORDS SUMMARY | ~2018-04-07 | XMS | Clinical Summary ---
Demographics + + + | Address | [facility] [place] [facility] | | | [address] | | | [place] [address] | + + + | Home Phone | | + + + | Preferred Language | Unknown | + + + | Marital Status | Unknown | + + + | Hoahaoism Affiliation | Unknown | + + + | Race | Unknown | + + + | Ethnic Group | Unknown | + + + Author + + + | Author | [facility] | | | and [place] | + + + | Organization | [facility] | | | [...] [place], | | | | | [place] [address] | | + + + + + Care Team Providers + +------+ + | Care Data Collection Specialist Name | Role | Phone | + [...] | MIK HOUSER | | 03/20/ | [id number] | | - [id number]: Qty: 1 | | Ureter | INCORPORATE | | 2019 | / | | on 10/02/2016 by Baltazar Riggins | | | D | | | /[id number] | | MD eRza | | | | | | 51 [...] +--------+-------+---------+ | DEPARTMENT OF | DEPART | [id number] | Indemn | | | | CORRECTIONS [...] +--------+ +--------+ + + | ABBIE RAMIRES [place] | Corpor | 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
--- OUTSIDE RECORDS SUMMARY | ~2018-04-07 | XMS | Clinical Summary ---
Demographics + + + | Address | [address] | | | [place] [address] | + + + | Home Phone | | + + + | Preferred Language | Unknown | + + + | Marital Status | | + + + | Gnosticist Affiliation | 1041 | + + + | Race | Unknown | + + + | Ethnic Group | Unknown | + + + Author + + + | Author | [facility] | + + + | Organization | [facility] | + + + | Address | Unknown | + + + | Phone | Unavailable | + + + Support + + +---------+ + | Name | Relationship | Address | Phone | + + +---------+ + | Jovana Mancia | ECON | Unknown | | | n [place] | | | | + + +---------+ + Care Team Providers + +------+ + | Care Linux Solaris Administrator Name | Role | Phone | + [...] | 17 | | | | | [id number] | | | | | | | [...] +------+-------+---------+ | [employer] | [facility] | [id number] | | | | | | RECTIO [...] | 1956 | +- | [place] [address] | | | estela | | | [address] | | + +--------+ +--------+ + + | LUCIANA,ABBIE | Correc | Other | [birth year] | Home: | [address] | | [place] | tional | | 1898 | +- | [place] | | | | | | [address] | [address] | | | Facili | | | | | | | ty | | | | | + +--------+ +--------+ + +
[~2018-04-07 14:46] MED LIST changes: +ALDACTONE100 MG PO; +ASMANEX220 MC1 INH; +CORGARD80 MG PO; +FLUTICASONE PRO16 GM NAS; +IMODIUM A-D2 M2 PO; +MAG-OXIDE400 MG PO; +NEXAVAR200 MG PO; +NORVASC2.5 MG PO; +NOVOLIN R100 UNIT/1 SUB-Q; +OXYCODONE HCL5 MG PO; +SALINE NASAL SP30 ML NAS; +VENTOLIN HFA18 GM INH; +XIFAXAN550 MG PO; +[UNRECOGNIZED DRUG - OTHER] PO
--- OUTSIDE RECORDS SUMMARY | 2018-04-07 14:50 | XMS ---
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 E.DCecy VISIT COUNT (12 MO.) [address] [facility] [address] TOTAL 7 NOTE: Visits indicate total known visits. ED/UCC VISIT TRACKING (12 MO.) 04/07/2018 14:46 [facility] [place] TYPE: Emergency COMPLAINT: - CONFUSION 03/26/2018 20:30 [facility] [place] TYPE: Emergency COMPLAINT: - POSS INFECTION/ALT LOC 01/30/2018 00:15 [facility] Do [place] TYPE: Emergency DIAGNOSES: - Hyperglycemia 12/19/2017 22:51 [facility] [place] TYPE: Emergency COMPLAINT: - 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 - Laceration without foreign body of scalp, initial encounter - OTHER SPECIFIED POSTPROCEDURAL STATES - Acquired absence of other specified parts of digestive tract - Personal history of urinary calculi - Other exterminator (current) drug therapy 05/29/2017 19:00 [facility] TYPE: Emergency COMPLAINT: - RECTAL BLEEDING DIAGNOSES: - Exposure to other specified factors, initial encounter - Personal history of traumatic brain injury - Personal history of urinary calculi - Thrombocytopenia, unspecified - Melena - Acquired absence of other specified parts of digestive tract - Other mcfp (current) drug therapy - Personal history of other infectious and parasitic diseases - Personal history of nicotine dependence - Acute sinusitis, unspecified - 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 - Type 2 diabetes mellitus without complications - Fall from bed, initial encounter - Laceration without foreign body of scalp, initial encounter INPATIENT VISIT TRACKING (12 MO.) 01/30/2018 00:15 Romain PAINTING TYPE: Medical Surgical DIAGNOSES: - Hyperglycemia 08/28/2017 20:05 [facility] Shantanu [facility] TYPE: Recovery DIAGNOSES: - Coagulation defect, unspecified - Unspecified cirrhosis of liver - Other lesions of oral mucosa - Unspecified cirrhosis of liver - Coagulation defect, unspecified [email or web address]
== END 2018-04-07 16:10 | disposition home or self-care (01) ==
LOC: ED 14:46
DX: K72.90 Hepatic failure, unspecified without coma (principal); E11.9 Type 2 diabetes mellitus without complications; Z79.899 Other long term (current) drug therapy
CPT/HCPCS: 85025; 99285